=== PATIENT | female | born 1990 | race Caucasian/White ===

== ENCOUNTER 2017-10-19 08:52 | Outpatient (CLI) | payer OTHER ==
[2017-10-19 10:23] LABS: ADD UMIC YES; UR ASCORBIC ACID NEGATIVE (NEGATIVE); UR BILIRUBIN (Dip) NEGATIVE (NEGATIVE); UR BLOOD (Dip) NEGATIVE (NEGATIVE); UR CLARITY CLEAR (CLEAR); UR COLOR STRAW (YELLOW); UR GLUCOSE (Dip) NEGATIVE (NEGATIVE); UR KETONES (Dip) NEGATIVE (NEGATIVE); UR LEUKOCYTE ESTERASE (Dip) 1+ Leu/ul (NEGATIVE); UR NITRITE (Dip) NEGATIVE (NEGATIVE); UR RBC 0 /HPF (0-5); UR SQUAMOUS EPITHELIAL CELL FEW /HPF (FEW); UR TOTAL PROTEIN (Dip) NEGATIVE (NEGATIVE); UR UROBILINOGEN (Dip) NEGATIVE (NEGATIVE); UR WBC 1 /HPF (0-5)
== END 2017-10-19 10:55 | disposition home or self-care (01) ==
LOC: OBT 08:52 → L-D 08:52 → OBT 10:55
DX: O62.9 Abnormality of forces of labor, unspecified (principal); O34.219 Maternal care for unspecified type scar from previous cesarean delivery; O26.893 Other specified pregnancy related conditions, third trimester; R10.30 Lower abdominal pain, unspecified; Z3A.30 30 weeks gestation of pregnancy
CPT/HCPCS: 76815; 76817; 76818; 81001

== ENCOUNTER 2017-11-11 16:50 | Outpatient (CLI) | payer OTHER | END 2017-11-11 17:15 | disposition home or self-care (01) | LOC: OBT 16:50 → L-D 16:51 → OBT 17:15 | DX: O26.893 Other specified pregnancy related conditions, third trimester (principal); Z3A.33 33 weeks gestation of pregnancy; J11.1 Influenza due to unidentified influenza virus with other respiratory manifestations | CPT/HCPCS: Z7500 ==

== ENCOUNTER 2017-11-11 17:23 | Emergency (ER) | payer OTHER | END 2017-11-11 18:40 | disposition home or self-care (01) | LOC: E/R 17:23 | DX: J02.9 Acute pharyngitis, unspecified (principal) | CPT/HCPCS: 99283; Z7502 ==

== ENCOUNTER 2017-11-12 04:28 | Emergency (ER) | payer OTHER ==
[2017-11-12] MEDS: ACETAMINOPHEN 650MG/20.3ML CUP PO (09:24)
== END 2017-11-12 09:39 | disposition home or self-care (01) ==
LOC: FTE 09:39
DX: J02.9 Acute pharyngitis, unspecified (principal)
CPT/HCPCS: 99283; Z7502

== ENCOUNTER 2017-12-19 19:46 | Inpatient (IN) | payer OTHER ==
[2017-12-19] MEDS ORDERED: METHYLERGONOVINE 0.2 MG INJ IM (20:30)
[2017-12-19] MEDS ORDERED: CARBOPROST 250 MCG INJ IM (20:30)
[2017-12-19] MEDS ORDERED: OXYTOCIN 30 UNITS/LR 500 ML IV (20:30)
[2017-12-19] MEDS: LACTATED RINGER'S 1,000 ML IV (20:51)
[2017-12-19 21:14] LABS: ADD MAN DIFF? NO
[2017-12-19 21:16] LABS: BASOPHILS % 0.3 % (0.0-2.0); EOSINOPHILS % 0.2 % (0.0-7.0); HEMATOCRIT 34.4 % (37.0-47.0); HEMOGLOBIN 11.4 g/dl (12.0-16.0); LYMPHOCYTES # 1.5 10^3/ul (0.8-2.9); LYMPHOCYTES % 11.1 % (15.0-51.0); MEAN CORPUSCULAR HEMOGLOBIN 30.6 pg (29.0-33.0); MEAN CORPUSCULAR HGB CONC 33.1 g/dl (32.0-37.0); MEAN CORPUSCULAR VOLUME 92.2 fl (82.0-101.0); MONOCYTE # 0.9 10^3/ul (0.3-0.9); MONOCYTES % 6.7 % (0.0-11.0); NEUTROPHIL # 10.7 10^3/ul (1.6-7.5); NEUTROPHILS % 80.6 % (39.0-77.0); PLATELET COUNT 230 10^3/UL (140-415); RED BLOOD COUNT 3.73 10^6/ul (4.20-5.40); RED CELL DISTRIBUTION WIDTH 13.1 % (11.5-14.5)
[2017-12-19 21:16] LABS: WHITE BLOOD COUNT 13.3 10^3/ul (4.8-10.8)
[2017-12-19 21:32] LABS: PROTIME 12.2 Sec (11.9-14.9)
[2017-12-19 21:33] LABS: PARTIAL THROMBOPLASTIN TIME 24.9 Sec (25.0-35.0)
[2017-12-19] MEDS: METOCLOPRAMIDE 10 MG INJ IV (22:10)
[2017-12-19] MEDS: ONDANSETRON 4 MG INJ IV (22:12)
[2017-12-19] MEDS: FAMOTIDINE 20 MG INJ IV (22:14)
[2017-12-19] MEDS ORDERED: MISOPROSTOL 200 MCG TAB PR (22:30)
[2017-12-19] MEDS ORDERED: NA PHOSPHATE/BIPHOS 133 ML ENEMA PR (22:30)
[2017-12-19] MEDS ORDERED: LANOLIN 7 GM TUBE TOP (22:30)
[2017-12-19 22:31] LABS: HEPATITIS B SURFACE ANTIGEN NEGATIVE (NEGATIVE)
[2017-12-19] MEDS ORDERED: morphine SULFATE/PF (10 MG/10 ML) INJ (23:20)
[2017-12-19] MEDS ORDERED: BUPIVACAINE 0.75%/DEXT (SPINAL) 2 ML INJ (23:22)
[2017-12-19] MEDS ORDERED: MIDAZOLAM 1 MG/ML 2 ML INJ (23:46)
[2017-12-19] MEDS ORDERED: OXYTOCIN 10 UNIT INJ (23:50)
[2017-12-20] MEDS ORDERED: OXYTOCIN 30 UNITS/LR 500 ML IV (00:11)
[2017-12-20] MEDS ORDERED: HYDROmorphONE (0.2 MG/ML) 10ML SYG IV ×3 (00:30)
[2017-12-20] MEDS ORDERED: ONDANSETRON 4 MG INJ IV ×2 (00:30)
[2017-12-20] MEDS ORDERED: HYDROmorphONE 0.5 MG/0.5 ML SYG IV ×2 (00:30)
[2017-12-20] MEDS ORDERED: MEPERIDINE 25 MG INJ IV (00:30)
[2017-12-20] MEDS ORDERED: LABETALOL HCL 20MG INJ IV (00:30)
[2017-12-20] MEDS ORDERED: DIPHENHYDRAMINE 50 MG INJ IV (00:30)
[2017-12-20] MEDS ORDERED: FENTAnyl 50 MCG/ML VIAL IV ×2 (00:30)
[2017-12-20] MEDS ORDERED: hydrALAzine 20 MG INJ IV (00:30)
[2017-12-20] MEDS ORDERED: NALOXONE (0.4 MG/ML) INJ IV (00:30)
[2017-12-20] MEDS: CEFAZOLIN 2 GM/50 ML (PMX) 50 ML IV (01:12)
[2017-12-20] MEDS: MISOPROSTOL 200 MCG TAB PR (01:13)
[2017-12-20] MEDS: KETOROLAC 30 MG INJ IV ×2 (01:58→18:26)
[2017-12-20] MEDS: OXYTOCIN 30 UNITS/LR 500 ML IV (02:51)
[2017-12-20] MEDS: DIPHENHYDRAMINE 50 MG INJ IV ×3 (03:12→20:55)
[2017-12-20] MEDS: LACTATED RINGER'S 1,000 ML IV ×7 (04:04→22:13)
[2017-12-20 07:20] LABS: ADD MAN DIFF? NO
[2017-12-20 07:24] LABS: WHITE BLOOD COUNT 15.1 10^3/ul (4.8-10.8)
[2017-12-20 07:24] LABS: BASOPHILS % 0.1 % (0.0-2.0); EOSINOPHILS % 0.1 % (0.0-7.0); HEMATOCRIT 30.8 % (37.0-47.0); HEMOGLOBIN 10.2 g/dl (12.0-16.0); LYMPHOCYTES # 1.2 10^3/ul (0.8-2.9); LYMPHOCYTES % 7.6 % (15.0-51.0); MEAN CORPUSCULAR HEMOGLOBIN 30.6 pg (29.0-33.0); MEAN CORPUSCULAR HGB CONC 33.1 g/dl (32.0-37.0); MEAN CORPUSCULAR VOLUME 92.5 fl (82.0-101.0); MEAN PLATELET VOLUME 10.7 fl (7.4-10.4); MONOCYTE # 1.1 10^3/ul (0.3-0.9); MONOCYTES % 7.4 % (0.0-11.0); NEUTROPHIL # 12.6 10^3/ul (1.6-7.5); NEUTROPHILS % 83.9 % (39.0-77.0); PLATELET COUNT 169 10^3/UL (140-415); RED BLOOD COUNT 3.33 10^6/ul (4.20-5.40)
[2017-12-20] MEDS: SENNA/DOCUSATE NA (8.6MG/50MG) TAB PO ×2 (08:53→20:55)
[2017-12-20 15:18] LABS: RAPID PLASMA REAGIN NONREACTIVE (NR)
[2017-12-21] MEDS: IBUPROFEN 600 MG TAB PO ×4 (00:14→17:50)
[2017-12-21] MEDS: LACTATED RINGER'S 1,000 ML IV ×2 (04:08→06:13)
[2017-12-21] MEDS: SENNA/DOCUSATE NA (8.6MG/50MG) TAB PO ×2 (09:07→21:00)
[2017-12-21] MEDS: OXYCODONE/ACETAMINOPHEN (5/325) TAB PO ×2 (14:26→19:20)
[2017-12-22] MEDS: OXYCODONE/ACETAMINOPHEN (5/325) TAB PO ×3 (03:39→15:20)
[2017-12-22] MEDS: IBUPROFEN 600 MG TAB PO ×3 (06:09→11:28)
[2017-12-22] MEDS: SENNA/DOCUSATE NA (8.6MG/50MG) TAB PO (08:44)
[2017-12-22] MEDS: MEASLES,MUMPS,RUBELLA VACCINE INJ SC* (09:00)
[2017-12-22] MEDS: DIPHTH/TET/ACEL PERTUSS (ADULT) 0.5 ML VIAL IM* (12:52)
== END 2017-12-22 15:54 | disposition home or self-care (01) | DRG 766 ==
LOC: OBT 19:46 → L-D 12-20 00:52 → PP1 12-20 02:52 → L-D 19:48
PROVIDERS: Obstetrics & Gynecology
PROC: 10D00Z1 Extraction of Products of Conception, Low, Open Approach (ICD-10-PCS; principal; 2017-12-20)
DX: O34.211 Maternal care for low transverse scar from previous cesarean delivery (principal); Z3A.39 39 weeks gestation of pregnancy; Z37.0 Single live birth
CPT/HCPCS: 85025; 85610; 85730; 86592; 86850; 86900; 86901; 87340; 90715; 94760; 99464